=== PATIENT | male | born 2000 | race African-American/Black ===

== ENCOUNTER 2022-10-22 15:35 | Inpatient (IN) | payer OTHER, SELFPAY ==
[~2022-10-22] VITALS: Ht 170.2 cm; Wt 77.9 kg
[2022-10-22 16:55] VITALS: BP 134/54
[2022-10-22] MEDS: LR 1,000 ML IV SCH (17:50)
[2022-10-22] MEDS ORDERED: HYDROMORPHONE HCL 0.5 MG/ 0.5 ML SYRINGE IV PRN (18:00)
[2022-10-22] MEDS ORDERED: fentaNYL 100 MCG/2 ML INJECTION IV PRN (18:00)
[2022-10-22] MEDS ORDERED: ONDANSETRON 4MG 2ML VIAL IV PRN ×2 (18:00→20:30)
[2022-10-22] MEDS ORDERED: CENT1TAB2 PO (18:03)
[2022-10-22] MEDS ORDERED: HOME MED LIST COMPLETE! XX SCH (18:05)
[2022-10-22] MEDS ORDERED: LIDOCAINE 1% MDV 20ML VIAL As Ordered ONE (18:21)
[2022-10-22] MEDS ORDERED: BUPIVACAINE HCL 0.25% 10ML VIAL As Ordered ONE (18:21)
[2022-10-22] MEDS ORDERED: BUPIVACAINE LIPOSOME/PF 1.3% 20ML VIAL (13.3MG/ML)(EXPAREL) As Ordered ONE (18:22)
[2022-10-22] MEDS ORDERED: ROCURONIUM BROMIDE 50MG/5ML VIAL As Ordered ONE (19:05)
[2022-10-22] MEDS ORDERED: MIDAZOLAM INJ 2MG/2ML VIAL As Ordered ONE (19:05)
[2022-10-22] MEDS ORDERED: ONDANSETRON 4MG 2ML VIAL As Ordered ONE (19:05)
[2022-10-22] MEDS ORDERED: SUGAMMADEX SODIUM 500 MG/5 ML VIAL (BRIDION) As Ordered ONE (19:05)
[2022-10-22] MEDS ORDERED: LIDOCAINE 2% 100MG/5ML SDV (FOR ANES.) As Ordered ONE (19:05)
[2022-10-22] MEDS ORDERED: fentaNYL 100 MCG/2 ML INJECTION As Ordered ONE (19:05)
[2022-10-22] MEDS ORDERED: propofoL 200 MG/20 ML VIAL As Ordered ONE (19:05)
[2022-10-22] MEDS ORDERED: HYDROmorphone HCL 2MG/ML 1ML VIAL As Ordered ONE (19:10)
[2022-10-22] MEDS: PIPERACILLIN/TAZOBACTAM SOD 3.375 GM in D5W MINI-BAG PLUS 50 ML IV SCH (20:37)
[2022-10-22 21:08] VITALS: BP 131/54
[2022-10-22 21:38] VITALS: BP 129/57
[2022-10-22 22:10] VITALS: BP 126/60
[2022-10-22] MEDS: PERCOCET 5MG/325MG TAB PO PRN (22:59)
[2022-10-22 23:00] VITALS: BP 115/80
[2022-10-23] VITALS (8 sets, daily range): BP systolic 107–140; BP diastolic 45–78
[2022-10-23] MEDS: PIPERACILLIN/TAZOBACTAM SOD 3.375 GM in D5W MINI-BAG PLUS 50 ML IV SCH ×4 (03:48→20:35)
[2022-10-23] MEDS: LR 1,000 ML IV SCH ×2 (05:25→09:50)
[2022-10-23 06:12] LABS: BASO % 0.1 % (0.0-1.0); HEMATOCRIT 43.5 % (42.0-52.0); HEMOGLOBIN 13.9 g/dl (13.5-17.5); LYMPH # 1.3 10^3/uL (1.5-5.0); LYMPH % 8.6 % (24.0-44.0); MEAN CORPUSCULAR HEMOGLOBIN 29.4 pg (27.0-33.0); MEAN CORPUSCULAR VOLUME 92.2 fl (80.0-96.0); MONO # 0.9 10^3/uL (0.0-0.8); MONO % 6.1 % (2.0-8.0); NEUTROPHILS # 12.6 10^3/uL (1.5-8.5); NEUTROPHILS % 84.9 % (36.0-66.0); PLATELET COUNT, AUTOMATED 237 10^3/uL (150-450); RED BLOOD COUNT 4.72 10^6/uL (4.30-6.10); WHITE BLOOD COUNT 14.8 10^3/uL (4.0-10.0)
[2022-10-23 06:42] LABS: C REACTIVE PROTEIN QUANTITATIV < 0.40 MG/DL (<1.0)
[2022-10-23 06:43] LABS: BLOOD UREA NITROGEN 11 MG/DL (9-23); CALCIUM LEVEL 8.4 MG/DL (8.5-10.1); CARBON DIOXIDE LEVEL 27 MMOL/L (20-31); CHLORIDE LEVEL 105 MMOL/L (98-107); CREATININE FOR GFR 1.15 MG/DL (0.70-1.30); GLUCOSE, FASTING 103 MG/DL (60-100); POTASSIUM SERUM 4.3 MMOL/L (3.5-5.1); SODIUM LEVEL 137 MMOL/L (136-145)
[2022-10-23] MEDS ORDERED: KETOROLAC 30 MG/ML 1ML VIAL IV PRN (07:00)
[2022-10-23] MEDS: PERCOCET 5MG/325MG TAB PO PRN ×2 (08:19→19:48)
[2022-10-24 02:00] VITALS: BP 135/65
[2022-10-24] MEDS: PIPERACILLIN/TAZOBACTAM SOD 3.375 GM in D5W MINI-BAG PLUS 50 ML IV SCH ×2 (03:02→08:33)
[2022-10-24 05:56] VITALS: BP 126/68
[2022-10-24 06:14] LABS: BASO # 0.1 10^3/uL (0.0-0.2); BASO % 0.4 % (0.0-1.0); EOS # 0.1 10^3/uL (0.0-0.5); EOS % 1.2 % (0.0-3.0); HEMATOCRIT 39.2 % (42.0-52.0); HEMOGLOBIN 12.7 g/dl (13.5-17.5); LYMPH # 3.7 10^3/uL (1.5-5.0); LYMPH % 31.6 % (24.0-44.0); MEAN CORPUSCULAR HEMOGLOBIN 29.7 pg (27.0-33.0); MEAN CORPUSCULAR HGB CONC 32.4 g/dl (32.0-36.5); MEAN CORPUSCULAR VOLUME 91.6 fl (80.0-96.0); MONO % 8.6 % (2.0-8.0); NEUTROPHILS # 6.8 10^3/uL (1.5-8.5); NEUTROPHILS % 57.9 % (36.0-66.0); PLATELET COUNT, AUTOMATED 211 10^3/uL (150-450); RED BLOOD COUNT 4.28 10^6/uL (4.30-6.10); WHITE BLOOD COUNT 11.7 10^3/uL (4.0-10.0)
[2022-10-24 06:43] LABS: C REACTIVE PROTEIN QUANTITATIV < 0.40 MG/DL (<1.0)
[2022-10-24 06:44] LABS: BLOOD UREA NITROGEN 12 MG/DL (9-23); CALCIUM LEVEL 8.2 MG/DL (8.5-10.1); CARBON DIOXIDE LEVEL 29 MMOL/L (20-31); CHLORIDE LEVEL 106 MMOL/L (98-107); CREATININE FOR GFR 1.48 MG/DL (0.70-1.30); GLUCOSE, FASTING 81 MG/DL (60-100); SODIUM LEVEL 139 MMOL/L (136-145)
[2022-10-24] MEDS ORDERED: MIRALAX *UNIT DOSE* 17GM PACKET PO ONE (07:55)
[2022-10-24 10:00] VITALS: BP 132/70
[2022-10-24 14:00] VITALS: BP 122/78
[2022-10-24] MEDS: metroNIDAZOLE (FLAGYL) 500MG TABLET PO SCH ×2 (14:14→21:51)
[2022-10-24] MEDS: CIPROFLOXACIN 500MG TABLET PO SCH (17:24)
[2022-10-24 18:00] VITALS: BP 132/67
[2022-10-24 21:10] VITALS: BP 128/68
[2022-10-25 03:35] VITALS: BP 116/56
[2022-10-25 05:34] VITALS: BP 122/66
[2022-10-25] MEDS: CIPROFLOXACIN 500MG TABLET PO SCH (05:50)
[2022-10-25] MEDS: metroNIDAZOLE (FLAGYL) 500MG TABLET PO SCH (05:50)
[2022-10-25 06:19] LABS: BASO % 0.4 % (0.0-1.0); EOS # 0.2 10^3/uL (0.0-0.5); EOS % 2.3 % (0.0-3.0); HEMATOCRIT 40.7 % (42.0-52.0); HEMOGLOBIN 13.3 g/dl (13.5-17.5); LYMPH % 33.1 % (24.0-44.0); MEAN CORPUSCULAR HEMOGLOBIN 29.8 pg (27.0-33.0); MEAN CORPUSCULAR HGB CONC 32.7 g/dl (32.0-36.5); MEAN CORPUSCULAR VOLUME 91.1 fl (80.0-96.0); MONO # 0.7 10^3/uL (0.0-0.8); MONO % 8.1 % (2.0-8.0); NEUTROPHILS # 5.1 10^3/uL (1.5-8.5); NEUTROPHILS % 55.8 % (36.0-66.0); PLATELET COUNT, AUTOMATED 222 10^3/uL (150-450); RED BLOOD COUNT 4.47 10^6/uL (4.30-6.10); WHITE BLOOD COUNT 9.1 10^3/uL (4.0-10.0)
[2022-10-25 06:46] LABS: C REACTIVE PROTEIN QUANTITATIV < 0.40 MG/DL (<1.0)
[2022-10-25 06:48] LABS: BLOOD UREA NITROGEN 12 MG/DL (9-23); CALCIUM LEVEL 8.4 MG/DL (8.5-10.1); CARBON DIOXIDE LEVEL 31 MMOL/L (20-31); CHLORIDE LEVEL 104 MMOL/L (98-107); CREATININE FOR GFR 1.22 MG/DL (0.70-1.30); GLUCOSE, FASTING 81 MG/DL (60-100); POTASSIUM SERUM 4.2 MMOL/L (3.5-5.1); SODIUM LEVEL 140 MMOL/L (136-145)
[2022-10-25] MEDS ORDERED: MOM 30ML SUSPENSION UDC PO ONE (07:40)
[2022-10-25] MEDS ORDERED: METR-265 PO (08:52)
[2022-10-25] MEDS ORDERED: CIPR-249 PO (08:52)
[2022-10-25 10:00] VITALS: BP 141/78
== END 2022-10-25 10:30 | disposition home or self-care (01) | DRG 343 ==
LOC: M MSPAV 16:55
PROVIDERS: ADMIT Surgery; ATTEND Surgery
PROC: 0DTJ4ZZ Resection of Appendix, Percutaneous Endoscopic Approach (ICD-10-PCS; principal; 2022-10-22 17:40)
DX: K36 Other appendicitis (principal); R10.11 Right upper quadrant pain; R10.13 Epigastric pain